=== PATIENT | male | born 1930 ===

== ENCOUNTER 2017-01-31 07:11 | Day surgery (SDC) | payer MEDICARE ==
[2017-01-31 07:39] VITALS: BMI 29.0
[2017-01-31] MEDS ORDERED: Midazolam 2 MG/2 ML VIAL ONE (08:26)
[2017-01-31] MEDS ORDERED: MethylPREDNISolone Depo 40 mg/ml Inj ONE (08:26)
[2017-01-31] MEDS ORDERED: Iohexol 300 10 ML ONE (08:27)
[2017-01-31] MEDS ORDERED: Lidocaine 1% Inj (20ml) ONE (08:27)
[2017-01-31] MEDS ORDERED: Bupivacaine HCl 0.25% PF (10 ml) Inj ONE (08:27)
[2017-01-31] MEDS ORDERED: Lactated Ringer's 1,000 ML IV ONE (09:10)
[2017-01-31] MEDS ORDERED: Lactated Ringer's 1,000 ML IV SCH (09:22)
--- NOTE | 2017-01-31 09:37 | OP ---
PROCEDURE DATE: 01/31/2017 PREOPERATIVE DIAGNOSIS: Lumbar radiculopathy. POSTOPERATIVE DIAGNOSIS: Lumbar radiculopathy. PROCEDURE: Bilateral L4-5, L5-S1 transforaminal epidural steroid injection. ANESTHESIOLOGIST: Dr. Sigala. SURGEON: Dr. Joshua. ANESTHESIA TYPE: Monitored anesthesia care. COMPLICATIONS: None. SPECIMEN: None. PROCEDURE: After re-discussion of the procedure with the patient including its risks, benefits, alte rnatives, outcome data, possibility of no effect or increased pain, the patient consented to the proc edure. He denies any recent infections, bleeding tendencies, or being on anticoagulants. A decision was then made to proceed to the OR. The patient was placed on the fluoroscopy table in a prone position with 2 pillows underneath his abd omen. The back was prepped and draped in a usual sterile fashion and sterile technique was adhered t o during the entire procedure. The L4 and L5 vertebral levels were first identified in the anterior- posterior view. Oblique angle towards the right at approximately 20 degrees was obtained to maximize the visualization of the right L4 and L5 pedicles. The skin overlying the 6 o'clock positions of lizette th pedicles was then infiltrated with 1% lidocaine using a 25-gauge needle. Subsequently, a 22-gauge 3-1/2 inch spinal needle was then incrementally advanced under fluoroscopic guidance until the tip o f the needle lay within the intervertebral foramen. The needle position was confirmed on the anterop osterior view and lateral views. After satisfactory positioning of both needles, approximately 0.5 m L of Isovue contrast was injected showing appropriate epidural and nerve root spread without any sign s of CSF or intravenous involvement. At this point, approximately 2 mL of a 0.25% Marcaine and Depo- Medrol mixture was injected. The needle was then removed and the same exact procedure was performed on the contralateral left side using the same medications and techniques. At the end of the case, th e patient's back was cleaned and dried and Band-Aids were applied. The patient was then transferred to the recovery area in good condition without any signs of [place] [employer] or any neurological deficits. He will have a followup in our office in approximately 2-4 weeks. En-Mikey J Joshua MD cc: [id number] TT: 01/31/2017 09:37:06 [facility] # [id number] tn
[2017-01-31 09:54] VITALS: RESP 18; O2SAT 98
[2017-01-31 10:27] VITALS: BP 122/67; PULSE 58; TEMP 97.6
--- NOTE | 2017-02-04 15:29 | RAD ---
PROCEDURE: Intraoperative Fluoroscopy. HISTORY: PAIN MANAGEMENT FINDINGS: Approximately 101.3 seconds of fluoroscopy time utilized. Total radiation dose = 31.39 mGy - cm.
== END 2017-01-31 11:05 | disposition home or self-care (01) ==
LOC: H.OPSURG 07:11
PROVIDERS: ATTEND Anesthesiology
DX: M54.16 Radiculopathy, lumbar region (principal); E78.5 Hyperlipidemia, unspecified; I10 Essential (primary) hypertension
CPT/HCPCS: 64483; 64484; J1030; J2250; J3010; J7120; Q9967

== ENCOUNTER 2017-02-26 11:42 | Day surgery (SDC) | payer MEDICARE ==
[2017-02-26 12:37] VITALS: RESP 18
[2017-02-26 12:50] VITALS: BMI 28.7
[2017-02-26] MEDS ORDERED: MethylPREDNISolone Depo 40 mg/ml Inj ONE (13:18)
[2017-02-26] MEDS ORDERED: Iohexol 300 10 ML ONE (13:19)
[2017-02-26] MEDS ORDERED: Lidocaine 1% Inj (20ml) ONE (13:19)
[2017-02-26] MEDS ORDERED: Bupivacaine HCl 0.25% PF (10 ml) Inj ONE (13:20)
[2017-02-26] MEDS ORDERED: Midazolam 2 MG/2 ML VIAL ONE (13:23)
[2017-02-26] MEDS ORDERED: Lidocaine 1% Inj (20ml) IV ONE (13:37)
[2017-02-26] MEDS ORDERED: Iohexol 300 10 ML IJ ONE ×2 (13:37)
[2017-02-26] MEDS ORDERED: Bupivacaine HCl 0.25% PF (10 ml) Inj IJ ONE ×2 (13:40)
[2017-02-26] MEDS ORDERED: MethylPREDNISolone Depo 40 mg/ml Inj INJ ONE (13:42)
[2017-02-26] MEDS ORDERED: Lactated Ringer's 1,000 ML IV ONE (13:58)
[2017-02-26] MEDS ORDERED: HYDROmorphone 0.5 mg/0.5 ml ISec IVP PRN (14:03)
[2017-02-26] MEDS ORDERED: Lactated Ringer's 1,000 ML IV SCH (14:03)
--- NOTE | 2017-02-26 15:09 | RAD ---
PROCEDURE: Intraoperative Fluoroscopy. HISTORY: PAIN MANAGEMENT FINDINGS: Fluoroscopic assistance was provided. Approximately 56.7 seconds fluoroscopy time utilized. Radiation dose = 28.77 mGy.
[2017-02-26 15:16] VITALS: BP 124/76; PULSE 56; TEMP 98.1; O2SAT 96
--- NOTE | 2017-02-26 19:15 | OP ---
PROCEDURE DATE: 02/26/2017 PREOPERATIVE DIAGNOSIS: Lumbar radiculopathy. POSTOPERATIVE DIAGNOSIS: Lumbar radiculopathy. PROCEDURE: Right L4-5, L5-S1 transforaminal epidural steroid injection. ANESTHESIOLOGIST: SURGEON: Dr. Joshua ANESTHESIA TYPE: Monitored anesthesia care. COMPLICATIONS: None. SPECIMEN: None. DESCRIPTION OF PROCEDURE: After re-discussion of the procedure with the patient including its risks, benefits, alternatives, outcome data, possibility of no effect or increased pain, the patient consen maddy to the procedure. He denies any recent infections, bleeding tendencies, or being on anticoagulan ts. The decision was then made to proceed to the OR. The patient was placed on the fluoroscopy table in a prone position with 2 pillows underneath his abd omen. The back was prepped and draped in a usual sterile fashion and sterile technique was adhered t o during the entire procedure. The L4 and L5 vertebral levels were first identified in anterior-post erior view. Angulation towards the right at approximately 20 degrees was obtained to maximize the vi sualization of the right L4 and L5 pedicles. The skin overlying the 6 o'clock position of the pedicl es was then infiltrated with 1% lidocaine using a 25 gauge needle. Subsequently, a 22 gauge 3-1/2 in ch spinal needle was then incrementally advanced under fluoroscopic guidance until tip of needle lay within the intervertebral foramen. The final needle position was confirmed on the anterior-posterior view and on lateral views. After satisfactory positioning of the needles, approximately 1 mL of Iso lisa contrast was injected showing appropriate epidural and nerve root spread without any signs of CSF or intravenous involvement. At this point, approximately 3 mL of a 0.25% Marcaine and Depo-Medrol m ixture was injected. The needle was then removed and the patient's back was cleaned and dried and Ba nd-Aids were applied. The patient was then transferred to the recovery area in good condition without any signs of [employer] [place] or any neurological deficit. He will have a followup in the office in approximately 2-4 weeks. En-Mikey Joshua MD cc: [id number] TT: 02/26/2017 19:15:15 en
== END 2017-02-26 16:04 | disposition home or self-care (01) ==
LOC: H.OPSURG 11:42
PROVIDERS: ATTEND Anesthesiology
DX: M54.16 Radiculopathy, lumbar region (principal); E78.5 Hyperlipidemia, unspecified; I10 Essential (primary) hypertension; G89.29 Other chronic pain
CPT/HCPCS: 64483; J1030; J2250; J3010; J7120; Q9967